=== PATIENT | female | born 1990 | race African-American/Black ===

== ENCOUNTER 2017-05-03 12:46 | Emergency (ER) | payer OTHER ==
[~2017-05-03] VITALS: Ht 149.9 cm; Wt 50.3 kg
[2017-05-03 12:51] VITALS: BP 116/77
== END 2017-05-03 13:32 | disposition home or self-care (01) ==
LOC: ER 12:49
DX: B97.89 Other viral agents as the cause of diseases classified elsewhere (principal); R21 Rash and other nonspecific skin eruption; J45.909 Unspecified asthma, uncomplicated; F17.200 Nicotine dependence, unspecified, uncomplicated; Z88.1 Allergy status to other antibiotic agents
CPT/HCPCS: 99281; A4606; Z7610; Z7502